=== PATIENT | female | born 1975 | race Caucasian/White ===

== ENCOUNTER 2016-08-07 07:57 | Day surgery (SDC) | payer OTHER ==
[~2016-08-07 07:57] MED LIST: LOPR50TA12 PO; PERC5TAB12 PO; PNVPAK PO
[2016-08-07] MEDS ORDERED: PROPOFOL 200 MG/20 ML AMP IV ONE (10:42)
[2016-08-07] MEDS ORDERED: ASPI1TAB69 PO (12:34)
[2016-08-07] MEDS ORDERED: METOPROLOL TARTRATE 25 MG TAB PO PRN (12:45)
[2016-08-07] MEDS ORDERED: INSULIN HUMAN REGULAR 1,000 UNITS/10 ML VIAL SQ PRN (12:45)
[2016-08-07] MEDS ORDERED: SODIUM CHLORID 0.9% 500 ML IV SCH (12:45)
[2016-08-07] MEDS ORDERED: LACTATED RINGER'S 1000 ML IV SCH (12:45)
--- NOTE | 2016-08-08 11:20 | CF ---
cc: CHRISTIANO FONTANEZ M.D., RYAN R. M.D. SCOTT, JAMES A. M.D. PROCEDURE Transesophageal echocardiogram. INDICATION TIAs, rule out patent foramen ovale. DETAILS OF PROCEDURE The patient was draped and prepped in the usual manner. The patient underwent full ANALISA. Anesthesia was given as per the Anesthesia Department. Bubble studies x4 were carried out. FINDINGS 1. There was evidence of positive bubble study with some bubbles crossing over from the left to the right. A definite obvious PFO was not seen, but clearly because of the bubbles going across there is evidence of a PFO. 2. The aortic valve was trileaflet and free of significant disease. 3. The mitral valve appeared to move normally, although was minimally thickened and mildly redundant. 4. The LV function was normal. 5. The left atrium was not enlarged. 6. The right ventricle and right atrium were not enlarged. 7. The tricuspid valve appeared to move normally. 8. The right ventricular function was normal. 9. The left atrial appendage was visualized and there was no evidence of thrombus. 10.The aorta was visualized briefly and there was no evidence of significant dissection or thrombus. CONCLUSIONS Evidence of mildly positive bubble studies x4. No definite PFO visualized, but clearly because of positive bubble study there is evidence of [id number] shunting. PLAN Will plan to start the patient on aspirin as well. Will also discuss further with Dr. Morse and perhaps get a further opinion with Dr. Rahul Savage and also with the [facility]. Christiano Fontanez MD, FRCP,[facility]/EB /3:43 PM /11:03 AM
== END 2016-08-07 15:15 | disposition home or self-care (01) ==
LOC: HDIC 07:57 → HDOC 07:57
PROVIDERS: ATTEND Internal Medicine Cardiovascular Disease
DX: Q21.1 Atrial septal defect (principal); G45.9 Transient cerebral ischemic attack, unspecified
CPT/HCPCS: 93312; 93320; 93325

== ENCOUNTER 2017-09-28 16:09 | Observation (INO) | payer OTHER ==
[2017-09-28] MEDS: PCA - TOTAL MG DILAUDID DELIVERED PER SHIFT OTHER SCH ×2 (06:00→22:00)
[~2017-09-28 16:09] MED LIST changes: +ASPI1TAB69 PO; -LOPR50TA12 PO; -PERC5TAB12 PO; -PNVPAK PO
[2017-09-28] MEDS ORDERED: ONDANSETRON HCL 4 MG/2 ML VIAL IV PRN (16:15)
[2017-09-28] MEDS ORDERED: HYDROmorphone HCL PF 2 MG/ML VIAL IV PUSH PRN (16:30)
[2017-09-28 16:36] VITALS: BP 121/68; PULSE 84; RESP 20; TEMP 97.9; O2SAT 100
[2017-09-28] MEDS ORDERED: NALOXONE HCL 0.4 MG/ML AMP IV PUSH PRN (17:00)
[2017-09-28] MEDS ORDERED: PROMETHAZINE INJ 25 MG/ML VIAL IM PRN (17:00)
[2017-09-28] MEDS ORDERED: HYDROmorphone HCL PCA 6 MG/30 ML IV SCH (17:00)
--- NOTE | 2017-09-28 17:08 | HHI.HP ---
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 José Gonsalves Admission Diagnosis abdominal pain and uterine pain Diagnoses: History of Present Illness Patient had office Ablation today and now has severe pain with nausea and canot keep pain meds down Review of Systems Gastrointestinal: COMPLAINS OF: Abdominal pain (mostly over uterus), Nausea, Vomiting Past Family Social History Allergies: Coded Allergies: No Known Allergies (Verified , 04/19/14) Past Medical History TIA, Past Surgical History CS x4 Reported Medications none, toradol with menses Social History negative x3 Physical Exam Vital Signs Vital Signs Date Time Temp Pulse Resp B/P (MAP) Pulse Ox O2 Delivery O2 Flow Rate FiO2 09/28/17 16:36 97.9 84 20 121/68 (85) 100 Physical Exam GENERAL: This is a well-nourished,acute pain. SKIN: No rashes, ecchymoses or lesions. Cool and dry. HEAD: Atraumatic. Normocephalic. No temporal or scalp tenderness. NECK: Trachea midline. No JVD or lymphadenopathy. Supple, nontender, no meningeal signs. CARDIOVASCULAR: Regular rate and rhythm without murmurs, gallops, or rubs. RESPIRATORY: Clear to auscultation. Breath sounds equal bilaterally. No wheezes , rales, or rhonchi. GASTROINTESTINAL: Abdomen soft, non-tender, nondistended. No hepato-splenomegaly , or palpable masses. No guarding.pain over lower abdomen MUSCULOSKELETAL: Extremities without clubbing, cyanosis, or edema. No joint tenderness, effusion, or edema noted. No calf tenderness. Negative Homans sign bilaterally. NEUROLOGICAL: Awake and alert. Cranial nerves II through XII intact. Motor and sensory grossly within normal limits. Five out of 5 muscle strength in all muscle groups. Normal speech. Caprini VTE Risk Assessment Caprini VTE Risk Assessment: No/Low Risk (score <= 1) Caprini Risk Assessment Model Point Value = 1 Point Value = 2 Point Value = 3 Point Value = 5 Age 41-60 Minor surgery BMI > 25 kg/m2 Swollen legs Varicose veins or History of unexplained or recurrent spontaneous Oral contraceptives or hormone replacement Sepsis (< 1 month) Serious lung disease, including pneumonia (< 1 month) Abnormal pulmonary function Acute myocardial infarction Congestive heart failure (< 1 month) History of inflammatory bowel disease Medical patient at bed rest Age 61-74 Arthroscopic surgery Major open surgery (> 45 min) Laparoscopic surgery (> 45 min) Malignancy Confined to bed (> 72 hours) Immobilizing plaster cast Central venous access Age >= 75 History of VTE Family history of VTE Factor V Leiden Prothrombin [id number] Lupus anticoagulant Anticardiolipin antibodies Elevated serum homocysteine Heparin-induced thrombocytopenia Other congenital or acquired thrombophilia Stroke (< 1 month) Elective arthroplasty Hip, pelvis, or leg fracture Acute spinal cord injury (< 1 month) Prophylaxis Regimen Total Risk Factor Score Risk Level Prophylaxis Regimen 0-1 Low Early ambulation 2 Moderate Order ONE of the following: *Sequential Compression Device (SCD) *Heparin 5000 units SQ BID 3-4 Higher Order ONE of the following medications: *Heparin 5000 units SQ TID *Enoxaparin/Lovenox 40 mg SQ daily (WT < 150 kg, CrCl > 30 mL/min) *Enoxaparin/Lovenox 30 mg SQ daily (WT < 150 kg, CrCl > 10-29 mL/min) *Enoxaparin/Lovenox 30 mg SQ BID (WT < 150 kg, CrCl > 30 mL/min) AND/OR *Sequential Compression Device (SCD) 5 or more Highest Order ONE of the following medications: *Heparin 5000 units SQ TID (Preferred with Epidurals) *Enoxaparin/Lovenox 40 mg SQ daily (WT < 150 kg, CrCl > 30 mL/min) *Enoxaparin/Lovenox 30 mg SQ daily (WT < 150 kg, CrCl > 10-29 mL/min) *Enoxaparin/Lovenox 30 mg SQ BID (WT < 150 kg, CrCl > 30 mL/min) AND *Sequential Compression Device (SCD) Assessment and Plan Problem List: (1) Abdominal pain ICD Codes: R10.9 - Unspecified abdominal pain Plan: pain management José Gonsalves MD Sep 28, 2017 17:08
[2017-09-28 19:54] VITALS: BP 105/61; PULSE 74; RESP 18; TEMP 97.8
[2017-09-28 22:10] LABS: AUTOMATED NEUTROPHIL # 6.4 TH/MM3 (1.8-7.7); BASOPHIL % 0.3 % (0.0-2.0); HEMATOCRIT 36.9 % (35.0-46.0); HEMOGLOBIN 12.7 GM/DL (11.6-15.3); LYMPH % 7.8 % (9.0-44.0); LYMPHOCYTE # 0.6 TH/MM3 (1.0-4.8); MEAN CORPUSCULAR HEMOGLOBIN 30.7 PG (27.0-34.0); MEAN CORPUSCULAR HGB CONC 34.5 % (32.0-36.0); MEAN PLATELET VOLUME 9.3 FL (7.0-11.0); MONO % 3.2 % (0.0-8.0); MONOCYTE # 0.2 TH/MM3 (0-0.9); NEUT % 88.7 % (16.0-70.0); PLATELET COUNT 206 TH/MM3 (150-450); RED BLOOD COUNT 4.14 MIL/MM3 (4.00-5.30); RED CELL DISTRIBUTION WIDTH 12.6 % (11.6-17.2); WHITE BLOOD COUNT 7.2 TH/MM3 (4.0-11.0)
[2017-09-28 23:54] VITALS: BP 100/56; PULSE 70; RESP 18; TEMP 98.4
[2017-09-29 04:04] VITALS: BP 102/62; PULSE 67; RESP 18; TEMP 98.1
--- NOTE | 2017-09-29 07:30 | HHI.PR ---
Subjective Remarks jamie resolved doing well Objective Vital Signs Date Time Temp Pulse Resp B/P (MAP) Pulse Ox O2 Delivery O2 Flow Rate FiO2 09/29/17 04:04 98.1 67 18 102/62 (75) 09/28/17 23:54 98.4 70 18 100/56 (71) 09/28/17 22:00 18 09/28/17 19:54 97.8 74 18 105/61 (76) 09/28/17 17:19 20 09/28/17 16:36 97.9 84 20 121/68 (85) 100 I/O 09/28/17 09/28/17 09/28/17 09/29/17 09/29/17 09/29/17 07:00 15:00 23:00 07:00 15:00 23:00 Intake Total 500 ml 875 ml Balance 500 ml 875 ml Intake IV Total 500 ml 875 ml Result Diagram: 09/28/172018 Objective Remarks GENERAL: pain free . GASTROINTESTINAL: Abdomen soft, non-tender, nondistended. MUSCULOSKELETAL: No cyanosis, or edema. BACK: Nontender without obvious deformity. No CVA tenderness. Assessment and Plan Problem List: (1) Abdominal pain ICD Codes: R10.9 - Unspecified abdominal pain Plan: pain management Discharge Planning [facility] José Gonsalves MD Sep 29, 2017 07:30
[2017-09-29] MEDS ORDERED: PERC5TAB12 PO (07:31)
--- NOTE | 2017-09-29 07:31 | HHI.DCPOC ---
Discharge Care Plan Diagnosis: (1) delivery delivered Report Symptoms to Your Doctor -Temperature above 100.5 degrees -Redness, of incision or excessive or foul smelling drainage -Unusual pain or calf pain -Increased vaginal bleeding -Painful or difficulty urinating -Feelings of extreme sadness or anxiety after 2 weeks Goals to Promote Your Health * To prevent worsening of your condition and complications * To maintain your health at the optimal level Directions to Meet Your Goals Take your medications as prescribed Follow your dietary instruction Follow activity as directed Ensure plenty of rest for recovery Drink fluids for hydration Keep your appointments as scheduled Take your immunizations and boosters as scheduled If your symptoms worsen call your PCP, if no PCP go to Urgent Care Center or Emergency Room Smoking is Dangerous to Your Health. Avoid second hand smoke Call the 24-hour crisis hotline for domestic abuse at José Gonsalves MD Sep 29, 2017 07:31
[2017-09-29 07:35] VITALS: BP 103/64; PULSE 70; RESP 17; TEMP 98.8
== END 2017-09-29 08:56 | disposition home or self-care (01) ==
LOC: H1EA 16:09
PROVIDERS: ADMIT Obstetrics & Gynecology; ATTEND Obstetrics & Gynecology
DX: R10.9 Unspecified abdominal pain (principal); R11.2 Nausea with vomiting, unspecified; G89.18 Other acute postprocedural pain; Z86.73 Personal history of transient ischemic attack (TIA), and cerebral infarction without residual deficits
CPT/HCPCS: 85025; 96372; 96374; 96375; 96376; G0378; J1170; J2405; J2550